=== PATIENT | female | born 1960 | race Caucasian/White ===

== ENCOUNTER → 2019-12-08 12:57 | Outpatient (BNVA) | payer MEDICARE, OTHER, SELFPAY | PROVIDERS: Family Provider Nurse Practitioner Family; PCP Nurse Practitioner Family; Visit Provider Nurse Practitioner Psychiatric/Mental Health | DX: F31.5 Bipolar disorder, current episode depressed, severe, with psychotic features (principal); F43.12 Post-traumatic stress disorder, chronic; F50.2 Bulimia nervosa | CPT/HCPCS: 99213 ==

== ENCOUNTER → 2020-06-01 09:40 | Outpatient (BNVA) | payer MEDICARE, OTHER, SELFPAY | PROVIDERS: Family Provider Nurse Practitioner Family; PCP Nurse Practitioner Family; Visit Provider Nurse Practitioner Psychiatric/Mental Health | DX: F31.5 Bipolar disorder, current episode depressed, severe, with psychotic features (principal); F43.12 Post-traumatic stress disorder, chronic; F50.2 Bulimia nervosa | CPT/HCPCS: 99213 ==

== ENCOUNTER → 2020-07-13 07:55 | Outpatient (BNVA) | payer MEDICARE, OTHER, SELFPAY | PROVIDERS: Family Provider Nurse Practitioner Family; PCP Nurse Practitioner Family; Visit Provider Nurse Practitioner Psychiatric/Mental Health | DX: F31.5 Bipolar disorder, current episode depressed, severe, with psychotic features (principal); F43.12 Post-traumatic stress disorder, chronic; F50.2 Bulimia nervosa | CPT/HCPCS: 99213 ==

== ENCOUNTER → 2020-07-20 11:37 | Outpatient (BNVA) | payer MEDICARE, OTHER, SELFPAY | PROVIDERS: Family Provider Nurse Practitioner Family; PCP Nurse Practitioner Family; Visit Provider Nurse Practitioner Family | DX: M19.90 Unspecified osteoarthritis, unspecified site (principal); E55.9 Vitamin D deficiency, unspecified; E03.9 Hypothyroidism, unspecified; Z79.899 Other long term (current) drug therapy; Z13.6 Encounter for screening for cardiovascular disorders | CPT/HCPCS: 80053; 80061; 81003; 82306; 83036; 83735; 84100; 84443; 85025; 85651; 86140 ==

== ENCOUNTER → 2020-09-07 09:30 | Outpatient (BNVA) | payer MEDICARE, OTHER, SELFPAY | PROVIDERS: Family Provider Nurse Practitioner Family; PCP Nurse Practitioner Family; Visit Provider Nurse Practitioner Psychiatric/Mental Health | DX: F31.5 Bipolar disorder, current episode depressed, severe, with psychotic features (principal); F43.12 Post-traumatic stress disorder, chronic; F50.2 Bulimia nervosa | CPT/HCPCS: 99213 ==

== ENCOUNTER → 2020-10-17 15:08 | Outpatient (BNVA) | payer MEDICARE, OTHER, SELFPAY | PROVIDERS: Family Provider Nurse Practitioner Family; PCP Nurse Practitioner Family; Visit Provider Nurse Practitioner Family | DX: M19.90 Unspecified osteoarthritis, unspecified site (principal); S70.00XA Contusion of unspecified hip, initial encounter; Z96.642 Presence of left artificial hip joint | CPT/HCPCS: 73502 ==

== ENCOUNTER 2020-10-23 09:34 | Outpatient (CLI) | payer MEDICARE, OTHER, SELFPAY ==
--- NOTE | 2020-10-23 09:44 | MM_ITS ---
WS: [id number] BILATERAL SCREENING DIGITAL MAMMOGRAM WITH CAD HISTORY: SCREENING COMPARISON: 07/05/2019 and 05/03/2018 Bilateral CC and MLO views submitted. Computer aided detection analyzed. Breast composition: The breasts are heterogeneously dense, which may obscure small masses. No suspici ous masses, microcalcifications or architectural distortion. Benign calcifications and stable asymmet son within each breast. MM/[place] [id number] IMPRESSION: BI-RADS: 2-Benign FOLLOW UP: 1 Year Follow-up
[2020-10-23 14:26] LABS: Basophils % 0.8 %; Eosinophils # 0.1 10^3/uL (0.0-0.8); Eosinophils % 2.5 %; Hematocrit 40.1 % (37.0-47.0); Hemoglobin 12.8 g/dL (11.5-15.3); Lymphocytes # 1.8 10^3/uL (0.8-4.8); Lymphocytes % 37.8 %; Mean Corpuscular HGB Conc 31.9 g/dL (30.0-36.0); Mean Corpuscular Hemoglobin 30.5 pg (28.0-34.0); Mean Corpuscular Volume 95.5 fL (81-99); Mean Platelet Volume 9.5 fL (7.4-10.4); Monocytes # 0.5 10^3/uL (0.2-0.9); Monocytes % 9.4 %; Neutrophils # 2.36 10^3/uL (1.8-7.7); Neutrophils % 49.3 %; Nucleated Red Blood Cells % 0 %; Platelet Count 279 10^3/cmm (130-400); Red Cell Distribution Width 12.9 % (12.1-15.1); White Blood Count 4.8 10^3/uL (4.0-10.0)
[2020-10-23 15:07] LABS: 25 Hydroxy Vitamin D 40 ng/mL (30-100); Alanine Aminotransferase 23 U/L (0-33); Albumin Level 4.1 g/dL (3.5-5.2); Alkaline Phosphatase 105 IU/L (35-105); Aspartate Amino Transferase 23 U/L (0-32); C Reactive Protein 0.8 mg/L (0.0-4.9); Globulin 2.4 g/dL (1.3-4.6); Glomerular Filtration Rate 101.3 mL/min (90-130); Total Bilirubin 0.2 mg/dL (0.15-1.2); Total Protein 6.5 g/dL (6.6-8.7)
[2020-10-23 15:38] LABS: Erythrocyte Sedimentation Rate 8 mm/hr (0-15)
[2020-10-25 11:24] LABS: Anti-Nuclear Antibody Pattern Nuclear, Homogeneous; Anti-Nuclear Antibody Screen POSITIVE (NEGATIVE)
[2020-10-25 14:58] LABS: Quantiferon Mitogen >10.00 IU/mL; Quantiferon Nil 0.02 IU/mL; Quantiferon Plus TB1 0.33 IU/mL; Quantiferon Plus TB2 0.22 IU/mL; Quantiferon TB Gold NEGATIVE (NEGATIVE)
== END 2020-10-23 09:35 | disposition home or self-care (01) ==
LOC: RADSHAW 09:39
PROVIDERS: Internal Medicine Rheumatology; Family Provider Nurse Practitioner Family; PCP Nurse Practitioner Family; Visit Provider Nurse Practitioner Family
DX: M15.4 Erosive (osteo)arthritis (principal); Z12.31 Encounter for screening mammogram for malignant neoplasm of breast; Z11.1 Encounter for screening for respiratory tuberculosis; Z79.899 Other long term (current) drug therapy; Z96.643 Presence of artificial hip joint, bilateral; M19.041 Primary osteoarthritis, right hand; M19.042 Primary osteoarthritis, left hand; M19.90 Unspecified osteoarthritis, unspecified site
CPT/HCPCS: 36415; 71046; 73130; 73630; 77067; 80076; 82306; 82565; 85025; 85651; 86038; 86140; 86480; 99204

== ENCOUNTER 2020-10-23 13:51 | Outpatient (CLI) | payer MEDICARE, OTHER, SELFPAY ==
--- NOTE | 2020-10-23 13:57 | XR_ITS ---
WS: [id number] Exam: XR chest 2V* [id number] Date/Time of Exam: 10/23/2020 2:21 PM Reason For Exam: M19.041 - Primary osteoarthritis, right hand Comparison 08/21/2010. The lungs are clear and fully inflated. Normal cardiomediastinal structures. Plate and screw fixation of the right clavicle. XR/XR chest 2V* [id number] IMPRESSION: 1. No acute cardiopulmonary finding.
--- NOTE | 2020-10-23 13:57 | XR_ITS ---
WS: [id number] Exam: XR foot RT min 3V* [id number] Date/Time of Exam: 10/23/2020 2:21 PM Reason For Exam: M19.041 - Primary osteoarthritis, right hand No fracture or dislocation. Degenerative changes noted in the IP joints as well as the first MP joint . Degenerative changes in the midfoot joints. There are 2 screws noted in the medial malleolus appare ntly secondary to prior fracture. Normal soft tissues. XR/XR foot RT min 3V* [id number] IMPRESSION: 1. Degenerative changes of the foot as detailed above. 2. No fracture or dislocation.
--- NOTE | 2020-10-23 13:57 | XR_ITS ---
WS: [id number] Exam: XR hand RT min 3V* [id number] Date/Time of Exam: 10/23/2020 2:21 PM Reason For Exam: M19.041 - Primary osteoarthritis, right hand Comparison 01/12/2018. Severe osteoarthritic change noted involving the IP joints. This is most severe involving the PIP tigist nts which demonstrate osseous erosion and deformities. Moderate degenerative change also seen in the MP joints. Degenerative changes have been significantly progressive since the last exam. No acute fra cture or dislocation. XR/XR hand RT min 3V* [id number] IMPRESSION: 1. Severe degenerative changes noted in the IP joints most severe in the PIP bubba ints. Significant progression since prior study. 2. No fracture or dislocation. 3. Additional degenerative changes in the MP joints and also the joints of the wrist.
--- NOTE | 2020-10-23 13:57 | XR_ITS ---
WS: [id number] Exam: XR foot LT min 3V* [id number] Date/Time of Exam: 10/23/2020 2:21 PM Reason For Exam: M19.041 - Primary osteoarthritis, right hand No acute fracture or dislocation. Moderately advanced degenerative changes in the IP joints as well a s the first MP joint. Severe degenerative change in the DIP joint of the second toe. Degenerative kim nges in the midfoot joints. Normal soft tissues. Old healed fracture deformities of the third and fou rth metatarsals. XR/XR foot LT min 3V* [id number] IMPRESSION: 1. Moderately severe degenerative changes in the IP joints. This is most severe in the DIP joint of the second toe. Additional degenerative changes of the ankita t as detailed above. 2. No acute bony injury. Additional findings as noted above.
--- NOTE | 2020-10-23 13:57 | XR_ITS ---
WS: [id number] Exam: XR hand LT min 3V* [id number] Date/Time of Exam: 10/23/2020 2:21 PM Reason For Exam: M19.041 - Primary osteoarthritis, left hand Comparison 01/12/2018. Severe degenerative changes in the IP joints with [id number]. Partial subluxation of the second PIP joint with deformity. Moderate degenerative thinning of the MP joints. Degenerative changes of been progressive since prior study. No fracture or dislocation. No soft tissue foreign bodies. XR/XR hand LT min 3V* [id number] IMPRESSION: 1. Severe progressive degenerative changes in the IP joints. Moderate degenerat perla narrowing of the MP joints. 2. No fracture.
== END 2020-10-23 13:52 | disposition home or self-care (01) ==
LOC: LAB 13:55
PROVIDERS: PCP Nurse Practitioner Family; Visit Provider Nurse Practitioner Family
DX: M19.041 Primary osteoarthritis, right hand (principal); M19.042 Primary osteoarthritis, left hand; M19.90 Unspecified osteoarthritis, unspecified site
CPT/HCPCS: 71046; 73130; 73630

== ENCOUNTER 2020-11-29 06:00 | Outpatient (RCR) | payer MEDICARE, OTHER, SELFPAY | END 2020-12-26 23:59 | disposition home or self-care (01) | LOC: WPT 06:00 | PROVIDERS: PCP Nurse Practitioner Family; Referring Provider Nurse Practitioner Family; Visit Provider Nurse Practitioner Family | DX: M25.552 Pain in left hip (principal); G89.29 Other chronic pain | CPT/HCPCS: 97110; 97161 ==

== ENCOUNTER 2020-12-27 06:00 | Outpatient (RCR) | payer MEDICARE, OTHER, SELFPAY | END 2021-01-25 23:59 | disposition home or self-care (01) | LOC: WPT 06:00 | PROVIDERS: PCP Nurse Practitioner Family; Referring Provider Nurse Practitioner Family; Visit Provider Nurse Practitioner Family | DX: F31.5 Bipolar disorder, current episode depressed, severe, with psychotic features (principal); F43.12 Post-traumatic stress disorder, chronic; F50.2 Bulimia nervosa; Z79.899 Other long term (current) drug therapy | CPT/HCPCS: 97110; 99214 ==

== ENCOUNTER → 2021-01-14 14:45 | Outpatient (BNVA) | payer MEDICARE, OTHER, SELFPAY | PROVIDERS: PCP Nurse Practitioner Family; Visit Provider Internal Medicine Rheumatology | DX: L40.50 Arthropathic psoriasis, unspecified (principal); M15.4 Erosive (osteo)arthritis; Z79.899 Other long term (current) drug therapy; R76.8 Other specified abnormal immunological findings in serum; Z96.643 Presence of artificial hip joint, bilateral | CPT/HCPCS: 99214 ==

== ENCOUNTER → 2021-02-05 10:44 | Outpatient (BNVA) | payer MEDICARE, OTHER, SELFPAY | PROVIDERS: PCP Nurse Practitioner Family; Visit Provider Nurse Practitioner Psychiatric/Mental Health | DX: Z79.899 Other long term (current) drug therapy (principal) | CPT/HCPCS: 80053; 80061; 80164; 83036 ==

== ENCOUNTER → 2021-02-14 11:32 | Outpatient (BNVA) | payer MEDICARE, OTHER, SELFPAY | PROVIDERS: PCP Nurse Practitioner Family; Visit Provider Internal Medicine Rheumatology | DX: M19.90 Unspecified osteoarthritis, unspecified site (principal); R76.8 Other specified abnormal immunological findings in serum; Z79.899 Other long term (current) drug therapy; L40.50 Arthropathic psoriasis, unspecified | CPT/HCPCS: 36415; 80076; 81003; 82565; 82570; 84156; 85025; 86140; 86160; 86162; 86235; 86255; 86376 ==

== ENCOUNTER → 2021-03-21 07:22 | Outpatient (BNVA) | payer MEDICARE, OTHER, SELFPAY | PROVIDERS: PCP Nurse Practitioner Family; Visit Provider Nurse Practitioner Psychiatric/Mental Health | DX: F31.5 Bipolar disorder, current episode depressed, severe, with psychotic features (principal); F43.12 Post-traumatic stress disorder, chronic; F50.2 Bulimia nervosa | CPT/HCPCS: 99214 ==

== ENCOUNTER → 2021-05-08 07:36 | Outpatient (BNVA) | payer MEDICARE, OTHER, SELFPAY | PROVIDERS: PCP Nurse Practitioner Family; Visit Provider Nurse Practitioner Psychiatric/Mental Health | DX: F31.5 Bipolar disorder, current episode depressed, severe, with psychotic features (principal); F43.12 Post-traumatic stress disorder, chronic; F50.2 Bulimia nervosa | CPT/HCPCS: 99214 ==

== ENCOUNTER → 2021-05-27 13:18 | Outpatient (BNVA) | payer MEDICARE, OTHER, SELFPAY | PROVIDERS: PCP Nurse Practitioner Family; Visit Provider Internal Medicine Rheumatology | DX: M15.4 Erosive (osteo)arthritis (principal); M24.60 Ankylosis, unspecified joint; Z79.899 Other long term (current) drug therapy; Z71.89 Other specified counseling; Z96.643 Presence of artificial hip joint, bilateral | CPT/HCPCS: 99214 ==

== ENCOUNTER → 2021-06-19 07:20 | Outpatient (BNVA) | payer MEDICARE, OTHER, SELFPAY | PROVIDERS: PCP Nurse Practitioner Family; Visit Provider Nurse Practitioner Psychiatric/Mental Health | DX: F31.5 Bipolar disorder, current episode depressed, severe, with psychotic features (principal); F43.12 Post-traumatic stress disorder, chronic; F50.2 Bulimia nervosa | CPT/HCPCS: 99214 ==

== ENCOUNTER → 2021-07-30 09:03 | Outpatient (BNVA) | payer MEDICARE, OTHER, SELFPAY | PROVIDERS: PCP Nurse Practitioner Family; Visit Provider Internal Medicine Rheumatology | DX: L40.50 Arthropathic psoriasis, unspecified (principal); M15.4 Erosive (osteo)arthritis; Z79.899 Other long term (current) drug therapy | CPT/HCPCS: 80076; 82565; 85025; 86140 ==

== ENCOUNTER → 2021-08-14 07:45 | Outpatient (BNVA) | payer MEDICARE, OTHER, SELFPAY | PROVIDERS: PCP Nurse Practitioner Family; Visit Provider Nurse Practitioner Psychiatric/Mental Health | DX: F31.5 Bipolar disorder, current episode depressed, severe, with psychotic features (principal); F43.12 Post-traumatic stress disorder, chronic; F50.2 Bulimia nervosa | CPT/HCPCS: 99214 ==

== ENCOUNTER → 2021-08-20 13:53 | Outpatient (BNVA) | payer MEDICARE, OTHER, SELFPAY | PROVIDERS: PCP Nurse Practitioner Family; Visit Provider Internal Medicine Rheumatology | DX: M15.4 Erosive (osteo)arthritis (principal); M79.642 Pain in left hand; W19.XXXA Unspecified fall, initial encounter; Z79.899 Other long term (current) drug therapy; R76.8 Other specified abnormal immunological findings in serum; Z96.643 Presence of artificial hip joint, bilateral; Z71.89 Other specified counseling | CPT/HCPCS: 99214 ==

== ENCOUNTER 2021-08-20 14:46 | Outpatient (CLI) | payer MEDICARE, OTHER, SELFPAY ==
--- NOTE | 2021-08-20 14:59 | XR_ITS ---
WS: [id number] HAND LEFT TECHNIQUE: 3 views of the left hand CLINICAL INFORMATION: M79.643 - Pain in unspecified hand COMPARISON: October 23, 2020 FINDINGS: Osteopenia. Normal metacarpals. IP joint narrowing with advanced degenerative narrowing at the second PIP joint with subluxation. Additional advanced degenerative narrowing involving the fifth DIP joint s with subluxation and periarticular spurring. Mild narrowing of the radiocarpal joint. Degenerative narrowing at the first MCP joint. IMPRESSION: 1. Osteopenia. No acute fractures. 2. No significant changes compared to previous.
== END 2021-08-20 14:47 | disposition home or self-care (01) ==
PROVIDERS: PCP Nurse Practitioner Family; Visit Provider Internal Medicine Rheumatology
DX: M79.89 Other specified soft tissue disorders (principal); M85.842 Other specified disorders of bone density and structure, left hand
CPT/HCPCS: 73130

== ENCOUNTER → 2021-10-09 07:40 | Outpatient (BNVA) | payer MEDICARE, OTHER, SELFPAY | PROVIDERS: PCP Nurse Practitioner Family; Visit Provider Nurse Practitioner Psychiatric/Mental Health | DX: F31.5 Bipolar disorder, current episode depressed, severe, with psychotic features (principal); F43.12 Post-traumatic stress disorder, chronic; F50.2 Bulimia nervosa | CPT/HCPCS: 99214 ==

== ENCOUNTER → 2021-12-04 08:16 | Outpatient (BNVA) | payer MEDICARE, SELFPAY | PROVIDERS: PCP Nurse Practitioner Family; Visit Provider Nurse Practitioner Psychiatric/Mental Health | DX: F31.5 Bipolar disorder, current episode depressed, severe, with psychotic features (principal); F43.12 Post-traumatic stress disorder, chronic; F50.2 Bulimia nervosa; L40.50 Arthropathic psoriasis, unspecified; Z79.899 Other long term (current) drug therapy; M15.4 Erosive (osteo)arthritis; R76.8 Other specified abnormal immunological findings in serum; Z96.643 Presence of artificial hip joint, bilateral; Z71.89 Other specified counseling | CPT/HCPCS: 99214 ==

== ENCOUNTER 2022-01-08 12:35 | Inpatient (IN) | payer MEDICARE, OTHER, SELFPAY ==
[2022-01-08 12:45] VITALS: BP 157/93; PULSE 86; RESP 18; TEMP 36.2; O2SAT 97; BMI 28.3
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
[2022-01-08 14:21] LABS: Basophils % 0.7 %; Hematocrit 39.8 % (37.0-47.0); Hemoglobin 13.3 g/dL (11.5-15.3); Lymphocytes # 1.2 10^3/uL (0.8-4.8); Lymphocytes % 28.7 %; Mean Corpuscular HGB Conc 33.4 g/dL (30.0-36.0); Mean Corpuscular Hemoglobin 32.1 pg (28.0-34.0); Mean Corpuscular Volume 96.1 fl (81-99); Mean Platelet Volume 9.2 fL (7.4-10.4); Monocytes # 0.4 10^3/uL (0.2-0.9); Monocytes % 8.4 %; Neutrophils # 2.59 10^3/uL (1.8-7.7); Nucleated Red Blood Cells % 0 %; Platelet Count 331 10^3/cmm (130-400); Red Blood Count 4.14 10^6/uL (4.1-5.3); Red Cell Distribution Width 13.4 % (12.1-15.1); White Blood Count 4.2 10^3/uL (4.0-10.0)
[2022-01-08 14:54] LABS: Alanine Aminotransferase 28 U/L (0-33); Albumin Level 4.3 g/dL (3.5-5.2); Alkaline Phosphatase 66 IU/L (35-105); Anion Gap 15.3 (5-19); Aspartate Amino Transferase 39 U/L (0-32); Blood Urea Nitrogen 16 mg/dL (8-23); Calcium 10.2 mg/dL (8.5-10.5); Carbon Dioxide 26 mmol/L (22-29); Chloride 104 mmol/L (98-107); Globulin 2.6 g/dL (1.3-4.6); Glucose 113 mg/dL (65-115); Lipase 29 U/L (13-60); Osmolality Calculated 296 mOsm/kg (285-295); Potassium 3.3 mmol/L (3.5-5.1); Sodium 142 mmol/L (136-145); Total Bilirubin 0.5 mg/dL (0.15-1.2); Total Protein 6.9 g/dL (6.6-8.7)
[2022-01-08 14:57] LABS: Acetaminophen < 5.0 ug/mL (10-30); Salicylate < 0.3 mg/dL (3-10)
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
[2022-01-08 15:54] VITALS: BP 142/83; PULSE 82; RESP 14; O2SAT 94
[2022-01-08 16:06] VITALS: BP 142/73; PULSE 97; RESP 16; TEMP 36.4; O2SAT 99
[2022-01-08] MEDS: OLANZapine 5 mg ODT PO (16:29)
--- NOTE | 2022-01-08 17:51 | XR_ITS ---
WS: [id number] Portable AP upright chest, 01/08/2022 Clinical Data: history of positive tb skin test. Comparison: PA and lateral chest, 10/23/2020. Findings: No nodules, masses or effusions are seen. The heart is normal. The pulmonary vascularity is not increased. No pneumonia or pneumothorax is seen. There is internal fixation of a right mid clavi cular fracture. XR/XR chest 1V portable [id number] Impression: Negative chest.
[2022-01-08] MEDS: divalproex ER 500 mg Tablet (24H) 1500 MG PO (21:05)
[2022-01-08] MEDS: quetiapine 25 mg Tablet 50 MG PO (21:06)
[2022-01-08 21:10] VITALS: RESP 18
[2022-01-09 06:00] VITALS: RESP 18
[2022-01-09] MEDS: TRAMadol 50 mg Tablet PO ×2 (10:32→18:58)
[2022-01-09] MEDS: folic acid 1 mg Tablet PO (10:32)
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
[2022-01-09 14:00] VITALS: RESP 18
--- NOTE | 2022-01-09 14:02 | PC.NURSE ---
patient refused vitals.
--- NOTE | 2022-01-09 16:14 | PC.SOCIAL ---
Patient attended group, but did not meaningfully participate.
[2022-01-09 20:39] VITALS: RESP 20
[2022-01-09] MEDS: hyDROXYzine 25 mg Capsule 50 MG PO (20:45)
[2022-01-09] MEDS: divalproex ER 500 mg Tablet (24H) 1500 MG PO (20:46)
[2022-01-09] MEDS: quetiapine 100 mg Tablet PO (20:46)
--- NOTE | 2022-01-09 22:14 | PC.NURSE ---
patient tearful, patient asking this RN to go to her house and get her book. patient told this is not possible I cannot leave the hospital, patient offered other books we have on the unit, patient does not want them. patient thought process disorganized, pointing at staff and asking why they are crying when they are not, patient apologizing and stating I didn't mean to embarass you . patient argumentative and will not leave nurses station, she declines medication.
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
[2022-01-10 06:00] VITALS: PULSE 86; RESP 17; O2SAT 100
[2022-01-10] MEDS: folic acid 1 mg Tablet PO (08:54)
[2022-01-10] MEDS: venlafaxine ER (24HR) 150 mg Capsule PO (08:54)
--- NOTE | 2022-01-10 10:31 | W.PM.NPUPNS ---
Subjective NPU Subjective: She was standing in the hallway after the nurses had tried to talk her into taking her morning medication. One of the morning medications was tramadol. She would not talk with me. She looked at me with a skeptical look when I asked her how she was doing. I asked her why she did not want to take her tramadol. I interpreted her look as her thinking that I knew what was in her mind but she denied that when asked. She did not sleep well last night despite taking Seroquel 100 mg. She was up at the nurses station frequently. Her and father came to visit yesterday. She refused to see her . Mental Status Exam MSE Comments: This is a 61-year-old mildly overweight female who appears approximately her stated age and is in no acute distress. She is dressed in hospital scrubs. She was resistant to answering questions. Her eye contact was good. psychomotor activity mildly decreased. Speech is nondiscernible. She would not talk with me today. Alert, but would not talk with me. Attention and concentration seems a little diminished. Memory is intact Mood is nondiscernible. Affect is mildly dysphoric. Thought process nondiscernible because she would not talk Thought content: Denies auditory and visual hallucinations. She seems a paranoid. She seems to be delusional about her wanting to harm her. No current suicidal ideation, and no homicidal ideation. Fund of knowledge is probably average. Insight and judgment appear to be poor. Impulse control is probably poor. Cognition: Patient Appearance: Appropriate Level of Consciousness: Awake and Alert Ability to Follow Directions: Fair Patient Orientation (long list): Person Comprehension Ability: Mild Impairment Hallucination Type: None Delusion Description: Taoist Thought Process: Confused, Incoherent and Loose Associations Affect: Affect Description: Anxious and Labile Behavior: Patient Behavior: Appropriate Speech Pattern: Appropriate and Delayed Vitals/I&O/Wt Last Vital Signs Temp 97.5 F L 01/08/22 16:06 Pulse 86 01/10/22 06:00 Resp 17 01/10/22 06:00 BP 142/73 01/08/22 16:06 Pulse Ox 100 01/10/22 06:00 Weight last 48 hrs Weight 74.843 kg Data NPU : 01/08/22 14:17 01/08/22 14:17 A&P Assessment and plan (1) Bipolar I disorder, moderate, current or most recent episode depressed, with psychotic features: Status: Chronic (2) Chronic post-traumatic stress disorder: Status: Chronic (3) Bulimia nervosa in remission: Status: Chronic (4) Depression: Status: Acute Plan This is a 61-year-old female with a history of bipolar disorder and PTSD who presents with psychosis and insomnia Plan: 1. Continue current medication. We will increase Seroquel to 200 mg 2. Continue every 15 minute checks for safety. 3. Encourage individual, group and milieu therapies. 4. Encourage sober living treatment after discharge at the highest level of care to which she is willing to commit. 5. We will monitor for safety for herself in the community prior to discharge. Involuntary Hold Information 96 Hour Hold: 96 Hour Involuntary Admission: No Attestations U Medical Necessity Statement*: Inpatient hospitalization is medically necessary and the clinically appropriate intervention at this time. We will initiate medications and make changes as indicated. Coding Level of Care Code Acute Apprentice Stylist for Brad Ramos Diagnoses Bipolar I disorder, moderate, current or most recent episode depressed, with psychotic features F31.5 Chronic post-traumatic stress disorder F43.12 Bulimia nervosa in remission F50.2 Depression F32.A
[2022-01-10 14:00] VITALS: BP 119/65; PULSE 75; RESP 20; TEMP 36.9; O2SAT 100
--- NOTE | 2022-01-10 16:58 | PC.SOCIAL ---
Patient attended group.
[2022-01-10 20:23] VITALS: BP 135/95; PULSE 96; RESP 16; O2SAT 99
--- NOTE | 2022-01-11 01:14 | PC.NURSE ---
She refused her HS meds tonight.
--- NOTE | 2022-01-11 02:02 | PC.NURSE ---
patient confused, agitated. patient continues to put face right on nurses station glass, listening in on information about other patients. this continues to feed into patient's paranoia, patient resistive to care, intrusive. patient not able to be verbally redirected, she refuses to leave the nurses station.
[2022-01-11] MEDS: LORazepam 2 mg/mL INJ 1 mL IM ×2 (02:27→20:53)
[2022-01-11 06:00] VITALS: RESP 16
--- NOTE | 2022-01-11 13:26 | W.PM.NPUPNS ---
Subjective NPU Subjective: She refused her nighttime medications last night. She asked for a shot at midnight and received Ativan 2 mg IM. She did sleep for about 6 hours after that. She is somewhat unsteady on her feet today. She continues to be very paranoid and delusional. Mental Status Exam MSE Comments: This is a 61-year-old mildly overweight female who appears approximately her stated age and is in no acute distress. She is dressed in hospital scrubs. She was resistant to answering questions. Her eye contact was good. psychomotor activity mildly decreased. Speech is nondiscernible. She would not talk with me today. Alert, but would not talk with me. Attention and concentration seems a little diminished. Memory is intact Mood is nondiscernible. Affect is mildly dysphoric. Thought process nondiscernible because she would not talk Thought content: Denies auditory and visual hallucinations. She seems a paranoid. She seems to be delusional about her wanting to harm her. No current suicidal ideation, and no homicidal ideation. Fund of knowledge is probably average. Insight and judgment appear to be poor. Impulse control is probably poor. Cognition: Patient Appearance: Disheveled/Poor Hygiene Level of Consciousness: Awake and Alert Ability to Follow Directions: Fair Patient Orientation (long list): Person Comprehension Ability: Mild Impairment Hallucination Type: None Delusion Description: Not Present Thought Process: Confused, Disorganized, Indecisive and Loose Associations Affect: Affect Description: Depressed, Guarded and Tearful Behavior: Patient Behavior: Irritable, Negative, Resistive to Care and Uncooperative Speech Pattern: Clear and Pressured Vitals/I&O/Wt Last Vital Signs Temp 98.5 F 01/10/22 14:00 Pulse 96 01/10/22 20:23 Resp 16 01/11/22 06:00 BP 135/95 01/10/22 20:23 Pulse Ox 99 01/10/22 20:23 Data NPU : 01/08/22 14:17 01/08/22 14:17 A&P Assessment and plan (1) Bipolar I disorder, moderate, current or most recent episode depressed, with psychotic features: Status: Chronic (2) Chronic post-traumatic stress disorder: Status: Chronic (3) Bulimia nervosa in remission: Status: Chronic (4) Depression: Status: Acute Plan This is a 61-year-old female with a history of bipolar disorder and PTSD who presents with psychosis and insomnia Plan: 1. Continue current medication. We will increase Seroquel to 200 mg. We will give Ativan IM if she refuses p.o. medications at bedtime. 2. Continue every 15 minute checks for safety. 3. Encourage individual, group and milieu therapies. 4. Encourage sober living treatment after discharge at the highest level of care to which she is willing to commit. 5. We will monitor for safety for herself in the community prior to discharge. Involuntary Hold Information 96 Hour Hold: 96 Hour Involuntary Admission: No Attestations NPU Medical Necessity Statement*: Inpatient hospitalization is medically necessary and the clinically appropriate intervention at this time. We will initiate medications and make changes as indicated. Coding Level of Care Code Acute Advanced Manager for Brad Ramos Diagnoses Bipolar I disorder, moderate, current or most recent episode depressed, with psychotic features F31.5 Chronic post-traumatic stress disorder F43.12 Bulimia nervosa in remission F50.2 Depression F32.A
[2022-01-11 14:00] VITALS: BP 155/55; PULSE 92; RESP 20; TEMP 36.6; O2SAT 98
--- NOTE | 2022-01-11 14:54 | PC.NURSE ---
FALL PT IS AWAKE THIS MORNING. THOUGHT PROCESS IS CONFUSED. GAIT IS LESS STABLE THIS MORNING THAN PRIOR DAY. STAFF ENSURED THAT PT HAD WALKER FOR AMBULATION AND STRESSED IMPORTANCE OF USE. PT COMPLIANT WITH WALKER USE IN MORNING. AFTER BREAKFAST PT HAD EPISODE OF URINARY INCONTINENCE. REFUSED STAFF TO ASSIST WITH CHANGING CLOTHING, STATING THAT SHE CHANGES HER OWN CLOTHING AND ASKED STAFF TO LEAVE PRIOR TO GOING TO BATHROOM AND CHANGING. PT CHANGED PANTS WITHOUT FURTHER ISSUE. AT APPROXIMATELY 1005 NOISE WAS HEARD IN PTS ROOM. STAFF TO PTS ROOM WHERE PT WAS FOUND TO SITTING ON BUTTOCKS ON SHOWER FLOOR. PT STATES THAT SHE DECIDED TO CHANGE PANTS AGAIN BUT FELL IN BATHROOM WHILE CHANGING. DENIES STRIKING HEAD. STATES HIT BACK OF LEFT SHOULDER ON SHOWER WALL AND BACK OF LEFT THIGH ON SHOWER LIP. LIGHT REDNESS NOTED TO BACK OF SHOULDER. PT DENIED ANY PAIN AFTER STAFF ASSISTED IN STANDING AND MOVING TO BED. STAFF ASSISTED PT IN DRESSING IN FRESH CLOTHES. VS STABLE AT BP 119/66, O2 99%, PULSE 99. NOTIFIED, DIRECTOR NOTIFIED. PT PLACED CLOSE TO NURSES STATION FOR CLOSER MONITORING. ENSURED NON SLIP SOCKS IN PLACE AGAIN AFTER CHANGING CLOTHING. STAFF AWARE OF FALL RISK AND FALL PRECAUTIONS. AFTER MONITORING PT REMAINS RESISTANT TO ASSISTANCE FROM STAFF. PT THEN REFUSING TO CONSTANTLY UTILIZE WALKER. NOTIFIED AGAIN. NEW ORDERS PLACED TO BEGIN ONE ON ONE SITTER. PT REMAINS ONE TO ONE AT THIS TIME WITH SITTER. NO FURTHER C/O PAIN. NO FURTHER FALLS.
[2022-01-11] MEDS: acetaminophen 325 mg Tablet 650 MG PO (16:12)
[2022-01-11 20:17] VITALS: BP 141/64; PULSE 94; RESP 18; TEMP 37.2; O2SAT 99
--- NOTE | 2022-01-11 22:27 | PC.NURSE ---
She was given ativan 2 mg IM at 2052 per doctor request, if she refused her HS meds. She became very combative and hit my left hand with a brush.
[2022-01-12 06:00] VITALS: RESP 18
--- NOTE | 2022-01-12 08:07 | W.PM.NPUPNS ---
Subjective NPU Subjective: She said that she is feeling better today. She said that she slept well last night. She thought she was given Haldol and felt that that was helpful. It was actually Ativan that she received IM. She said something about using quetiapine to help her sleep at home. She said that while we have here and trying to give her is different and she does not want to take it. She was told that if she took that she would not have to take the shot. She continues to be paranoid. She said obviously I cannot trust anyone Mental Status Exam MSE Comments: This is a 61-year-old mildly overweight female who appears approximately her stated age and is in no acute distress. She is dressed in hospital scrubs. She was pleasant and cooperative and answered questions. Her eye contact was good. psychomotor activity mildly decreased. Speech is clear and coherent and of regular rate and rhythm Alert and oriented Attention and concentration appear to be normal today. Memory is intact Mood is good. Affect is mildly dysphoric. Thought process logical and goal directed Thought content: Denies auditory and visual hallucinations. She continues to be paranoid. She seems to be delusional about the staff here wanting to harm her. She refuses medications because she is convinced it is different from what she takes at home. No current suicidal ideation, and no homicidal ideation. Fund of knowledge is probably average. Insight and judgment appear to be poor. Impulse control is probably poor. Cognition: Patient Appearance: Disheveled/Poor Hygiene Level of Consciousness: Awake and Alert Ability to Follow Directions: Fair Patient Orientation (long list): Person, Place, Name, Age and Birthday Comprehension Ability: Mild Impairment Hallucination Type: None Delusion Description: Not Present Thought Process: Confused, Disorganized, Indecisive and Loose Associations Affect: Affect Description: Appropriate and Calm Behavior: Patient Behavior: Appropriate Speech Pattern: Clear and Includes Profanity Vitals/I&O/Wt Last Vital Signs Temp 99 F 01/11/22 20:17 Pulse 94 01/11/22 20:17 Resp 18 01/12/22 06:00 BP 141/64 01/11/22 20:17 Pulse Ox 99 01/11/22 20:17 Data NPU : 01/08/22 14:17 01/08/22 14:17 A&P Assessment and plan (1) Bipolar I disorder, moderate, current or most recent episode depressed, with psychotic features: Status: Chronic (2) Chronic post-traumatic stress disorder: Status: Chronic (3) Bulimia nervosa in remission: Status: Chronic (4) Depression: Status: Acute Plan This is a 61-year-old female with a history of bipolar disorder and PTSD who presents with psychosis and insomnia Plan: 1. Continue current medication. We will increase Seroquel to 200 mg. We will give Ativan IM if she refuses p.o. medications at bedtime. 2. Continue every 15 minute checks for safety. 3. Encourage individual, group and milieu therapies. 4. Encourage sober living treatment after discharge at the highest level of care to which she is willing to commit. 5. We will monitor for safety for herself in the community prior to discharge. Involuntary Hold Information 96 Hour Hold: 96 Hour Involuntary Admission: No Attestations U Medical Necessity Statement*: Inpatient hospitalization is medically necessary and the clinically appropriate intervention at this time. We will initiate medications and make changes as indicated. Coding Level of Care Code Acute Marketing Database Analyst for Brad Ramos Diagnoses Bipolar I disorder, moderate, current or most recent episode depressed, with psychotic features F31.5 Chronic post-traumatic stress disorder F43.12 Bulimia nervosa in remission F50.2 Depression F32.A
[2022-01-12 14:00] VITALS: BP 125/66; PULSE 101; RESP 18; TEMP 37.1; O2SAT 100
[2022-01-12] MEDS: LORazepam 2 mg/mL INJ 1 mL IM (21:28)
[2022-01-12 22:00] VITALS: BP 123/65; PULSE 86; RESP 17; TEMP 37.1; O2SAT 100
--- NOTE | 2022-01-12 23:33 | PC.NURSE ---
Pt refused to take evening medication. Stated that the meds we are trying to give her are not what she takes at home. Even when shown on the computer itself where both generic and trade names are listed, pt states that's not the medications that i take . staff tried to explain that the pharmacy she uses for her home meds is not the same pharmacy that the hospital uses. and that not every pharmacy has the same medication company supply them, so the meds may be a different color and or a different shape. pt continues to refuse medications. one of the other pts has been encouraging this pt NOT to take the medications if she has not seen the Doctor yet. pt stated she has not seen the Doctor, and refuses to take our medicines because they are not the ones i take at home. IM Ativan given in right deltoid with staff and security standby.
[2022-01-13 06:00] VITALS: RESP 16
[2022-01-13] MEDS: levothyroxine 125 mcg Tablet PO (07:35)
[2022-01-13] MEDS: nicotine 2 mg Gum BUCCAL (10:50)
--- NOTE | 2022-01-13 12:12 | W.PM.NPUPNS ---
Subjective NPU Subjective: She said that she slept well last night. She did not remember taking the Ativan injection to sleep. She said she would take it as needed if she knew exactly what she was taking. She does not trust us to give her what we say we are getting her. She says she was a little afraid of the Ativan because she overdosed on Ativan 1 time in the ambulance had to be called. She said that she had an argument with her . She was told that we would prefer that she take the Seroquel or the Ativan by mouth and not need the injection. She will think about it and consider taking the Seroquel or the Ativan by mouth tonight. Mental Status Exam MSE Comments: This is a 61-year-old mildly overweight female who appears approximately her stated age and is in no acute distress. She is dressed in hospital scrubs. She was pleasant and cooperative and answered questions. Her eye contact was good. psychomotor activity mildly decreased. Speech is clear and coherent and of regular rate and rhythm Alert and oriented Attention and concentration appear to be normal today. Memory is intact Mood is good. Affect is mildly dysphoric. Thought process logical and goal directed Thought content: Denies auditory and visual hallucinations. She continues to be paranoid. She seems to be delusional about the staff here wanting to harm her. She refuses medications because she is convinced it is different from what she takes at home. No current suicidal ideation, and no homicidal ideation. Fund of knowledge is probably average. Insight and judgment appear to be poor. Impulse control is probably poor. Cognition: Patient Appearance: Appears Older than Age Level of Consciousness: Awake and Alert Ability to Follow Directions: Fair Patient Orientation (long list): Person, Place, Name, Age and Birthday Comprehension Ability: Mild Impairment Hallucination Type: Auditory Delusion Description: Not Present Thought Process: Confused, Disorganized, Indecisive and Loose Associations Affect: Affect Description: Appropriate and Calm Behavior: Patient Behavior: Appropriate and Cooperative Speech Pattern: Appropriate and Clear Vitals/I&O/Wt Last Vital Signs Temp 98.8 F 01/12/22 22:00 Pulse 86 01/12/22 22:00 Resp 16 01/13/22 06:00 BP 123/65 01/12/22 22:00 Pulse Ox 100 01/12/22 22:00 Data NPU : 01/08/22 14:17 01/08/22 14:17 A&P Assessment and plan (1) Bipolar I disorder, moderate, current or most recent episode depressed, with psychotic features: Status: Chronic (2) Chronic post-traumatic stress disorder: Status: Chronic (3) Bulimia nervosa in remission: Status: Chronic (4) Depression: Status: Acute Plan This is a 61-year-old female with a history of bipolar disorder and PTSD who presents with psychosis and insomnia Plan: 1. Continue current medication. We will increase Seroquel to 200 mg. We will also offer Ativan 2 mg p.o. but not both. We will give Ativan IM if she refuses p.o. medications at bedtime. 2. Continue every 15 minute checks for safety. 3. Encourage individual, group and milieu therapies. 4. Encourage sober living treatment after discharge at the highest level of care to which she is willing to commit. 5. We will monitor for safety for herself in the community prior to discharge. Involuntary Hold Information 96 Hour Hold: 96 Hour Involuntary Admission: No Attestations U Medical Necessity Statement*: Inpatient hospitalization is medically necessary and the clinically appropriate intervention at this time. We will initiate medications and make changes as indicated. Coding Level of Care Code Acute Mortgage Loan Assistant for Brad Ramos Diagnoses Bipolar I disorder, moderate, current or most recent episode depressed, with psychotic features F31.5 Chronic post-traumatic stress disorder F43.12 Bulimia nervosa in remission F50.2 Depression F32.A
[2022-01-13 14:00] VITALS: BP 146/72; PULSE 97; RESP 17; TEMP 36.8; O2SAT 99
[2022-01-13 20:16] VITALS: BP 115/64; PULSE 66; RESP 17; TEMP 36.9; O2SAT 98
[2022-01-13] MEDS: divalproex ER 500 mg Tablet (24H) 1500 MG PO (21:25)
[2022-01-13] MEDS: quetiapine 100 mg Tablet 200 MG PO (21:26)
[2022-01-14 06:00] VITALS: BP 126/82; PULSE 96; RESP 18; TEMP 36.9; O2SAT 100
[2022-01-14] MEDS: levothyroxine 125 mcg Tablet PO (06:57)
[2022-01-14] MEDS: folic acid 1 mg Tablet PO (08:10)
[2022-01-14] MEDS: TRAMadol 50 mg Tablet PO (08:10)
[2022-01-14] MEDS: venlafaxine ER (24HR) 150 mg Capsule PO (08:11)
[2022-01-14 14:00] VITALS: BP 126/82; PULSE 96; RESP 18; TEMP 36.9; O2SAT 100
[2022-01-14 14:51] VITALS: BP 104/57; PULSE 79; RESP 15; TEMP 36.8; O2SAT 100
--- NOTE | 2022-01-14 15:24 | W.PM.NPUPNS ---
Subjective NPU Subjective: She is doing better. She is less suspicious. However she is still paranoid. She has been compliant with oral medications last night and this morning. Unfortunately, she took the Seroquel 200 mg for the first time last night and did not get much sleep. We will try that and the Ativan p.o. tonight if she will take it. She was with her and father when I went to talk with her. I asked her if she was improved and he said it looks like it so far. He did not seem terribly convinced that she was better. Mental Status Exam MSE Comments: This is a 61-year-old mildly overweight female who appears approximately her stated age and is in no acute distress. She is dressed in hospital scrubs. She is more steady in her gait. She was standing while her and father were sitting and talking with them. She seemed pleasant with them. She had previously only wanted to visit with her father. Her eye contact was good. psychomotor activity mildly decreased. Speech is clear and coherent and of regular rate and rhythm Alert and oriented Attention and concentration appear to be normal today. Memory is intact Mood is good. Affect is mildly dysphoric. Thought process logical and goal directed Thought content: Denies auditory and visual hallucinations. She continues to be paranoid. She seems to be delusional about the staff here wanting to harm her. She refuses medications because she is convinced it is different from what she takes at home. No current suicidal ideation, and no homicidal ideation. Fund of knowledge is probably average. Insight and judgment appear to be poor. Impulse control is probably poor. Cognition: Patient Appearance: Appears Older than Age Level of Consciousness: Awake and Alert Ability to Follow Directions: Fair Patient Orientation (long list): Person, Place, Name, Age and Birthday Comprehension Ability: Mild Impairment Hallucination Type: None Delusion Description: Not Present Thought Process: Confused, Disorganized, Indecisive and Loose Associations Affect: Affect Description: Appropriate and Calm Behavior: Patient Behavior: Appropriate and Cooperative Speech Pattern: Appropriate and Clear Vitals/I&O/Wt Last Vital Signs Temp 98.2 F 01/14/22 14:51 Pulse 79 01/14/22 14:51 Resp 15 01/14/22 14:51 BP 104/57 01/14/22 14:51 Pulse Ox 100 01/14/22 14:51 Data NPU : 01/08/22 14:17 01/08/22 14:17 A&P Assessment and plan (1) Bipolar I disorder, moderate, current or most recent episode depressed, with psychotic features: Status: Chronic (2) Chronic post-traumatic stress disorder: Status: Chronic (3) Bulimia nervosa in remission: Status: Chronic (4) Depression: Status: Acute Plan This is a 61-year-old female with a history of bipolar disorder and PTSD who presents with psychosis and insomnia Plan: 1. Continue current medication. We will try Seroquel to 200 mg along with Ativan p.o. if she will take it tonight. We will give Ativan IM if she refuses p.o. medications at bedtime. 2. Continue every 15 minute checks for safety. 3. Encourage individual, group and milieu therapies. 4. Encourage sober living treatment after discharge at the highest level of care to which she is willing to commit. 5. We will monitor for safety for herself in the community prior to discharge. Involuntary Hold Information 96 Hour Hold: 96 Hour Involuntary Admission: No Attestations NPU Medical Necessity Statement*: Inpatient hospitalization is medically necessary and the clinically appropriate intervention at this time. We will initiate medications and make changes as indicated. Coding Level of Care Code Acute Packaging Inspector for Brad Ramos Diagnoses Bipolar I disorder, moderate, current or most recent episode depressed, with psychotic features F31.5 Chronic post-traumatic stress disorder F43.12 Bulimia nervosa in remission F50.2 Depression F32.A
--- NOTE | 2022-01-14 15:46 | PC.NURSE ---
Patient ambulating in hallway and dayroom without assistance. Gait is steady. Discussed with physician with orders to stop the 1:1 order.
[2022-01-14] MEDS: LORazepam 2 mg Tablet PO (21:36)
[2022-01-14] MEDS: quetiapine 100 mg Tablet 200 MG PO (21:36)
[2022-01-14] MEDS: divalproex ER 500 mg Tablet (24H) 1500 MG PO (21:42)
[2022-01-14 22:00] VITALS: BP 115/65; PULSE 87; RESP 17; TEMP 37; O2SAT 97
[2022-01-15 05:34] VITALS: BP 111/67; PULSE 57; RESP 17; TEMP 36.7; O2SAT 96
--- NOTE | 2022-01-15 07:10 | PC.NURSE ---
PT HAS HAD A MUCH BETTER NIGHT THIS NIGHT. PT FIRST REFUSED HER HS MEDS, BUT WHEN PT WAS ASKED TO COME BACK TO HER ROOM IN ORDER FOR STAFF TO GIVE AN INJECTION. ONCE PT ENTERED HER ROOM, PT STATED SHE WOULD TAKE HER OTHER MEDS. PT WAS GIVEN HER ORAL MEDICATIONS AND IM MEDICATION WAS WASTED.
[2022-01-15] MEDS: levothyroxine 125 mcg Tablet PO (09:25)
[2022-01-15] MEDS: venlafaxine ER (24HR) 150 mg Capsule PO (09:25)
[2022-01-15] MEDS: folic acid 1 mg Tablet PO (09:25)
--- NOTE | 2022-01-15 12:03 | W.PM.NPUPNS ---
Subjective NPU Subjective: She is doing better. She slept last night with the Seroquel 200 mg and Ativan 2 mg p.o. She is steady on her feet and walking well. We have been able to stop the sitter because she is more stable on her feet. She is taking her p.o. medications. Although she had some distrust last night. She took them partially in order to avoid an injection. Overall she is not seen as paranoid. She seemed to enjoy visiting with her which she did not want to see previously. She said that people have to gain her trust and you cannot just trust anyone you me on the street or in the hospital. Mental Status Exam MSE Comments: This is a 61-year-old mildly overweight female who appears approximately her stated age and is in no acute distress. She is dressed in hospital scrubs. She is steady on her feet now. She was pleasant and cooperative with the evaluation. Her eye contact was fairly good. psychomotor activity mildly decreased. Speech is clear and coherent and of regular rate and rhythm Alert and oriented Attention and concentration appear to be normal today. Memory is intact Mood is good. Affect is mildly dysphoric. Thought process logical and goal directed Thought content: Denies auditory and visual hallucinations. She continues to be paranoid. She seems to be delusional about the staff here wanting to harm her but these seem to be decreasing she has been taking p.o. medications. No current suicidal ideation, and no homicidal ideation. Fund of knowledge is probably average. Insight and judgment appear to be poor. Impulse control is probably poor. Cognition: Patient Appearance: Disheveled/Poor Hygiene Level of Consciousness: Awake and Alert Ability to Follow Directions: Fair Patient Orientation (long list): Person, Place, Name, Age and Birthday Comprehension Ability: Mild Impairment Hallucination Type: None Delusion Description: Not Present Thought Process: Disorganized and Indecisive Affect: Affect Description: Flat Behavior: Patient Behavior: Withdrawn Speech Pattern: No Speech Vitals/I&O/Wt Last Vital Signs Temp 98.0 F 01/15/22 05:34 Pulse 57 L 01/15/22 05:34 Resp 17 01/15/22 05:34 BP 111/67 01/15/22 05:34 Pulse Ox 96 01/15/22 05:34 Data NPU : 01/08/22 14:17 01/08/22 14:17 A&P Assessment and plan (1) Bipolar I disorder, moderate, current or most recent episode depressed, with psychotic features: Status: Chronic (2) Chronic post-traumatic stress disorder: Status: Chronic (3) Bulimia nervosa in remission: Status: Chronic (4) Depression: Status: Acute Plan This is a 61-year-old female with a history of bipolar disorder and PTSD who presents with psychosis and insomnia Plan: 1. Continue current medication. We will continue giving Seroquel to 200 mg along with Ativan 2 mg p.o.. We will give Ativan IM if she refuses p.o. medications at bedtime. 2. Continue every 15 minute checks for safety. 3. Encourage individual, group and milieu therapies. 4. Encourage sober living treatment after discharge at the highest level of care to which she is willing to commit. 5. We will monitor for safety for herself in the community prior to discharge. Involuntary Hold Information 96 Hour Hold: 96 Hour Involuntary Admission: No Attestations NPU Medical Necessity Statement*: Inpatient hospitalization is medically necessary and the clinically appropriate intervention at this time. We will initiate medications and make changes as indicated. Coding Level of Care Code Acute Piano Case And Bench Assembler for Brad Ramos Diagnoses Bipolar I disorder, moderate, current or most recent episode depressed, with psychotic features F31.5 Chronic post-traumatic stress disorder F43.12 Bulimia nervosa in remission F50.2 Depression F32.A
[2022-01-15 14:00] VITALS: BP 116/56; PULSE 93; RESP 16; TEMP 36.9; O2SAT 100
--- NOTE | 2022-01-15 14:55 | PC.SOCIAL ---
Patient did not attend group.
[2022-01-15 20:42] VITALS: BP 137/84; PULSE 80; RESP 18; TEMP 37.3; O2SAT 94
[2022-01-15] MEDS: quetiapine 100 mg Tablet 200 MG PO (21:25)
[2022-01-15] MEDS: LORazepam 2 mg Tablet PO (21:26)
[2022-01-15] MEDS: divalproex ER 500 mg Tablet (24H) 1500 MG PO (21:27)
[2022-01-16 06:00] VITALS: PULSE 78; RESP 16; TEMP 36.6; O2SAT 100
--- NOTE | 2022-01-16 09:24 | PC.NURSE ---
refused scheduled Folic acid & Effexor
--- NOTE | 2022-01-16 10:38 | PC.NURSE ---
Denies HI/SI and AVH. Denies pain. Patient is delusional during AM assessment and paranoid. States, I don't trust you or any of you. Refused AM medications despite multiple staff attempts. This RN attempted to help her but refuses any kind of assistance from me or staff. Refuses to use walker even though she is encouraged to do so.
[2022-01-16 14:00] VITALS: BP 107/68; PULSE 109; RESP 20; TEMP 36.8; O2SAT 97
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
[2022-01-16 21:22] VITALS: BP 100/70; PULSE 103; RESP 16; TEMP 36.9; O2SAT 99
[2022-01-16] MEDS: quetiapine 100 mg Tablet 200 MG PO (21:24)
[2022-01-16] MEDS: divalproex ER 500 mg Tablet (24H) 1500 MG PO (21:24)
[2022-01-16] MEDS: LORazepam 2 mg Tablet PO (21:24)
[2022-01-16] MEDS: trazodone 50 mg Tablet PO (21:25)
[2022-01-17 06:00] VITALS: RESP 16
[2022-01-17] MEDS: levothyroxine 125 mcg Tablet PO (06:43)
[2022-01-17] MEDS: venlafaxine ER (24HR) 150 mg Capsule PO (09:22)
[2022-01-17] MEDS: folic acid 1 mg Tablet PO (09:22)
--- NOTE | 2022-01-17 12:19 | P.NPUPN_ITS ---
Subjective NPU Subjective: Patient presents today continuing to be somewhat foggy but is able to discuss the fact that her came to visit her and she was still feeling unsure about what her discharge plan would be. We discussed the importance of us decreasing her Ativan further and this field underwriter's plan to decrease it to 1 mg starting tomorrow night and she understood agreed proceed as documented in his note. There were no strange comments or behaviors and we discussed the fact that this field underwriter initially was not sure that her father was still alive but that was confirmed and he is living with her. Mental Status Exam MSE Comments: This is an overweight white female in hospital scrubs with adequate grooming and eye contact. No abnormal movements except for mild psychomotor retardation. Cooperative with exam in no acute distress. Speech was decreased rate and volume with diminishing pauses occurring less frequently mood described as okay, affect subdued. Thought process organized. Thought contact: patient denies suicidal or homicidal ideation, there were no delusions reported or noted, patient denied auditory or visual hallucinations. Attention and concentration appeared intact and memory appeared reliable but none were formally tested. Patient is alert and oriented times three. Insight and judgment appear limited and impulse control appears limited. Vitals/I&O/Wt Last Vital Signs Temp 98.4 F 01/16/22 21: Pulse 103 H 01/16/22 21:22 Resp 16 01/17/22 06:00 BP 100/70 01/16/22 21:22 Pulse Ox 99 01/16/22 21:22 Data NPU : 01/08/22 14:17 01/08/22 14:17 A&P Assessment and plan (1) Bipolar I disorder, moderate, current or most recent episode depressed, with psychotic features: Status: Chronic (2) Chronic post-traumatic stress disorder: Status: Chronic Plan This is a 61-year-old female with a history of bipolar disorder and PTSD who presents with psychosis and insomnia Plan: 1.? Continue current medication.? We will continue giving Seroquel to 200 mg along with Ativan 2 mg p.o. due to the edvin, however we will look to decrease Ativan 1 mg p.o. nightly tomorrow.? 2.? Continue every 15 minute checks for safety. 3.? Encourage individual, group and milieu therapies. 4.? Encourage sober living treatment after discharge at the highest level of care to which she is willing to commit. 5.? We will work with treatment team to explore the support network for discharge and what the home environment is like. Involuntary Hold Information 96 Hour Hold: 96 Hour Involuntary Admission: No Attestations NPU Medical Necessity Statement*: Inpatient hospitalization is medically necessary and the clinically appropriate intervention at this time.? We will initiate medications and make changes as indicated.? Likely length of stay 1-3 days. Coding Level of Care Code Acute Shop And Alteration Tailor for [facility] Diagnoses Bipolar I disorder, moderate, current or most recent episode depressed, with psychotic features F31.5 Chronic post-traumatic stress disorder F43.12
[2022-01-17 14:00] VITALS: BP 102/63; PULSE 86; RESP 17; TEMP 36.6; O2SAT 96
[2022-01-17] MEDS: divalproex ER 500 mg Tablet (24H) 1500 MG PO (20:41)
[2022-01-17] MEDS: LORazepam 2 mg Tablet PO (20:41)
[2022-01-17] MEDS: quetiapine 100 mg Tablet 200 MG PO (20:41)
[2022-01-17] MEDS: trazodone 50 mg Tablet PO (20:41)
[2022-01-17 20:54] VITALS: BP 110/75; PULSE 86; RESP 16; O2SAT 100
[2022-01-18 05:46] VITALS: BP 111/77; PULSE 81; RESP 16; O2SAT 100
[2022-01-18] MEDS: levothyroxine 125 mcg Tablet PO (06:38)
[2022-01-18] MEDS: folic acid 1 mg Tablet PO (08:44)
[2022-01-18] MEDS: venlafaxine ER (24HR) 150 mg Capsule PO (08:44)
[2022-01-18] MEDS: nicotine 2 mg Gum BUCCAL (11:05)
[2022-01-18 14:00] VITALS: BP 106/68; PULSE 94; RESP 18; TEMP 36.8; O2SAT 97
--- NOTE | 2022-01-18 15:05 | P.NPUPN_ITS ---
Subjective NPU Subjective: Patient presents today continuing to have slow improvement in her cognitive slowing. However there was a report of her having strange behavior in the kitchen basically slapping a sandwich against the wall. She had no explanation for that behavior. We discussed the risk benefits and alternatives of changing her Ativan to 1 mg at night as needed and hopefully increasing her spontaneous cognitions and decreasing risk for falls and other sequela of benzodiazepines in geriatric populations and she appeared to understand and agreed to proceed as is documented in this note Mental Status Exam MSE Comments: This is an overweight white female in hospital scrubs with adequate grooming and eye contact. No abnormal movements except for psychomotor retardation and mild unsteadiness of gait as she utilizes her rolling walker. Cooperative with exam in no acute distress. Speech was decreased rate and volume with diminishing pauses/pauses occurring less frequently. Mood described as okay, affect subdued. Thought process organized. Thought contact: patient denies suicidal or homicidal ideation, there were no delusions reported or noted, patient denied auditory or visual hallucinations. Attention and concentration appeared intact and memory appeared reliable but none were formally tested. Shavonne ent is alert and oriented times three. Insight and judgment appear limited and impulse control appears limited versus impaired Vitals/I&O/Wt Last Vital Signs Temp 97.8 F 01/17/22 14:00 Pulse 81 01/18/22 05:46 Resp 16 01/18/22 05:46 BP 111/77 01/18/22 05:46 Pulse Ox 100 01/18/22 05:46 Data NPU : 01/08/22 14:17 01/08/22 14:17 A&P Assessment and plan (1) Bipolar I disorder, moderate, current or most recent episode depressed, with psychotic features: Status: Chronic (2) Chronic post-traumatic stress disorder: Status: Chronic Plan This is a 61-year-old female with a history of bipolar disorder and PTSD who presents with psychosis and insomnia Plan: 1.? Continue current medication.? We will continue giving Seroquel to 200 mg, however we decrease the Ativan to 1 mg p.o. nightly as needed.? 2.? Continue every 15 minute checks for safety. 3.? Encourage individual, group and milieu therapies. 4.? Encourage sober living treatment after discharge at the highest level of care to which she is willing to commit. 5.? We will work with treatment team to explore the support network for discharge and what the home environment is like. Involuntary Hold Information 96 Hour Hold: 96 Hour Involuntary Admission: No Attestations NPU Medical Necessity Statement*: Inpatient hospitalization is medically necessary and the clinically appropriate intervention at this time.? We will initiate medications and make changes as indicated.? Likely length of stay 2-3 days. Coding Level of Care Code Acute Jury Consultant for [facility] Fwd Diagnoses Bipolar I disorder, moderate, current or most recent episode depressed, with psychotic features F31.5 Chronic post-traumatic stress disorder F43.12
[2022-01-18] MEDS: quetiapine 100 mg Tablet 200 MG PO (20:46)
[2022-01-18] MEDS: trazodone 50 mg Tablet PO (20:46)
[2022-01-18] MEDS: divalproex ER 500 mg Tablet (24H) 1500 MG PO (20:46)
[2022-01-18 20:48] VITALS: BP 81/61; PULSE 86; RESP 17; TEMP 37.2; O2SAT 97
--- NOTE | 2022-01-19 01:35 | PHA.FALL ---
A Pharmacy Consult Was Conducted For Zakia Rajan Tico Due To: Ibarra Fall Scale Risk Level: High Fall Risk On 01/18/22 20:00 And A Medication Fall Risk Score Greater Than 10. The Recommendations Are As Follows: Diazepam 1mg BRENDA: 1,2,3,4,5,6,8,10 Divalproex ER BRENDA: 1,3,4,5,6,7,8,10 Lorazepam BRENDA: 1,3,4,5,6,8,10 Seroquel BRENDA: 2,3,4,5,7,8 Venlafaxine ER BRENDA: 1,4,7 Medications which cause/contribute to: 1 = sedation/fatigue/lethargy 2 = decreased alertness 3 = postural/orthostatic hypotension 4 = dizziness 5 = decreased neuromuscular function/ataxia 6 = decreased memory/cognitive impairment 7 = blurred vision 8 = confusion 9 = arrhythmias 10 = syncope 11 = anemia
[2022-01-19 05:35] VITALS: BMI 28.3
[2022-01-19 05:59] VITALS: BP 101/66; PULSE 66; RESP 16; TEMP 36.3; O2SAT 99
[2022-01-19] MEDS: levothyroxine 125 mcg Tablet PO (06:13)
[2022-01-19] MEDS: folic acid 1 mg Tablet PO (08:53)
[2022-01-19] MEDS: venlafaxine ER (24HR) 150 mg Capsule PO (08:53)
--- NOTE | 2022-01-19 09:31 | W.PM.NPUPNS ---
Subjective NPU Subjective: Patient presents today starting to be more spontaneously conversant and able to articulate concepts pertinent to her life and challenges. Was able to articulate that her situation at home should be workable given that the house is large enough for her, her father and . She was less unstable on her feet with the subtraction of the Ativan. And was seen moving quite well even without the rolling walker. She reports is eating and sleeping better. We discussed the likelihood of discharge within the next 48 hours. Medications: Medication Review Details: This is an overweight white female in hospital scrubs with adequate grooming and eye contact. No abnormal movements except for psychomotor retardation.? Cooperative with exam in no acute distress. Speech was decreased rate and volume with diminishing pauses/pauses occurring less frequently.? Mood described as better I think, affect less subdued. Thought process organized. Thought contact: patient denies suicidal or homicidal ideation, there were no delusions reported or noted, patient denied auditory or visual hallucinations. Attention and concentration appeared intact and memory appeared reliable but none were formally tested. Patient is alert and oriented times three. Insight and judgment appear limited and impulse control appears limited , but improving. Vitals/I&O/Wt Last Vital Signs Temp 97.4 F L 01/19/22 05:59 Pulse 66 01/19/22 05:59 Resp 16 01/19/22 05:59 BP 101/66 01/19/22 05:59 Pulse Ox 99 01/19/22 05:59 Weight last 48 hrs Weight 74.843 kg Data NPU : 01/08/22 14:17 01/08/22 14:17 A&P Assessment and plan (1) Bipolar I disorder, moderate, current or most recent episode depressed, with psychotic features: Status: Chronic (2) Chronic post-traumatic stress disorder: Status: Chronic (3) Depression: Status: Acute Plan This is a 61-year-old female with a history of bipolar disorder and PTSD who presents with psychosis and insomnia Plan: 1.? Continue current medication.? We will continue giving Seroquel to 200 mg, however we decrease the Ativan to 1 mg p.o. nightly as needed.? 2.? Continue every 15 minute checks for safety. 3.? Encourage individual, group and milieu therapies. 4.? Encourage sober living treatment after discharge at the highest level of care to which she is willing to commit. 5.? We will work with treatment team to explore the support network for discharge and what the home environment is like. Involuntary Hold Information 96 Hour Hold: 96 Hour Involuntary Admission: No Attestations NPU Medical Necessity Statement*: Inpatient hospitalization is medically necessary and the clinically appropriate intervention at this time.? We will initiate medications and make changes as indicated.? Likely length of stay 1-2 days. Coding Level of Care Code Acute Food Production Machine Operator for [facility] Fwd Diagnoses Bipolar I disorder, moderate, current or most recent episode depressed, with psychotic features F31.5 Chronic post-traumatic stress disorder F43.12 Depression F32.A
[2022-01-19 14:00] VITALS: BP 106/64; PULSE 70; RESP 15; TEMP 36.4; O2SAT 99
[2022-01-19] MEDS: quetiapine 100 mg Tablet 200 MG PO (21:05)
[2022-01-19] MEDS: divalproex ER 500 mg Tablet (24H) 1500 MG PO (21:05)
[2022-01-19 21:10] VITALS: BP 130/79; PULSE 88; RESP 17; TEMP 37.6; O2SAT 99
[2022-01-20 06:00] VITALS: BP 101/55; PULSE 80; RESP 18; TEMP 36.3; O2SAT 100
[2022-01-20] MEDS: levothyroxine 125 mcg Tablet PO (06:19)
[2022-01-20] MEDS: venlafaxine ER (24HR) 150 mg Capsule PO (09:38)
[2022-01-20] MEDS: folic acid 1 mg Tablet PO (09:38)
[2022-01-20 14:00] VITALS: BP 107/64; PULSE 77; RESP 17; TEMP 37.5; O2SAT 99
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
[2022-01-20 16:14] VITALS: BP 107/64; PULSE 77; RESP 17; TEMP 37.5; O2SAT 99
== END 2022-01-20 16:25 | disposition home or self-care (01) | DRG 885 ==
LOC: ER 15:09 → NP 15:22
PROVIDERS: Admitting Provider Psychiatry & Neurology Psychiatry; Emergency Provider Emergency Medicine; Visit Provider Psychiatry & Neurology Psychiatry
DX: F31.5 Bipolar disorder, current episode depressed, severe, with psychotic features (principal); F43.12 Post-traumatic stress disorder, chronic; G47.00 Insomnia, unspecified
CPT/HCPCS: 71045; 80053; 80307; 83690; 85025; 96372; 97150; 97165; 99285; J2060

== ENCOUNTER 2022-01-22 11:42 | Emergency (ER) | payer MEDICARE, OTHER, SELFPAY ==
[2022-01-22 11:44] VITALS: BP 135/63; PULSE 84; RESP 14; TEMP 37; O2SAT 99; BMI 23.1
--- NOTE | 2022-01-22 11:48 | ECG_ITS ---
[facility] Test Date: 2022-01-22 Pat Name: Zakia Doshi Department: Room: Gender: Female Case Folder: : 1960 Requested By: Franklin Avalos Order Number: [id number] Reading MD: Alfa Rodríguez M.D. Measurements Intervals [place] Rate: 78 P: 60 GA: 158 QRS: 32 QRSD: 104 T: 49 QT: 378 QTc: 433 Interpretive Statements SINUS RHYTHM No previous ECG available for comparison Electronically Signed On 01-22-2022 16:53:41 CDT by Alfa Rodríguez M.D. [email or web address]
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
[2022-01-22 12:22] LABS: Basophils % 0.6 %; Hematocrit 40.2 % (37.0-47.0); Hemoglobin 13.1 g/dL (11.5-15.3); Lymphocytes # 1.3 10^3/uL (0.8-4.8); Lymphocytes % 24.2 %; Mean Corpuscular HGB Conc 32.6 g/dL (30.0-36.0); Mean Corpuscular Hemoglobin 31.1 pg (28.0-34.0); Mean Corpuscular Volume 95.5 fl (81-99); Mean Platelet Volume 10.8 fL (7.4-10.4); Monocytes # 0.4 10^3/uL (0.2-0.9); Monocytes % 8.3 %; Neutrophils # 3.51 10^3/uL (1.8-7.7); Neutrophils % 66.5 %; Nucleated Red Blood Cells % 0 %; Platelet Count 237 10^3/cmm (130-400); Red Blood Count 4.21 10^6/uL (4.1-5.3); Red Cell Distribution Width 12.5 % (12.1-15.1); White Blood Count 5.3 10^3/uL (4.0-10.0)
[2022-01-22 12:53] LABS: SARS Covid-2 Antigen Negative (Negative)
[2022-01-22 13:05] LABS: Alanine Aminotransferase 24 U/L (0-33); Albumin Level 4.4 g/dL (3.5-5.2); Alkaline Phosphatase 83 IU/L (35-105); Aspartate Amino Transferase 26 U/L (0-32); Blood Urea Nitrogen 13 mg/dL (8-23); Calcium 9.3 mg/dL (8.5-10.5); Carbon Dioxide 29 mmol/L (22-29); Chloride 102 mmol/L (98-107); Free T4 Free Thyroxine 1.36 ng/dL (0.82-1.77); Glucose 111 mg/dL (65-115); Lipase 22 U/L (13-60); Osmolality Calculated 293 mOsm/kg (285-295); Sodium 141 mmol/L (136-145); Thyroid Stimulating Hormone 3.11 uIU/mL (0.27-4.20); Total Bilirubin 0.3 mg/dL (0.15-1.2); Total Protein 6.4 g/dL (6.6-8.7)
[2022-01-22 13:32] LABS: Acetaminophen < 5.0 ug/mL (10-30); Alcohol Level < 10 mg/dL (0-10); Salicylate < 0.3 mg/dL (3-10)
[2022-01-22 14:04] LABS: Amphetamines Screen Urine Negative (Negative); Barbiturates Screen Urine Negative (Negative); Benzodiazepines Screen Urine Positive (Negative); Cocaine Screen Urine Negative (Negative); Opiate Screen Urine Negative (Negative); PCP Screen Urine Negative (Negative); THC Screen Urine Negative (Negative)
[2022-01-22 14:32] LABS: Add Urine Microscopic? NO; Charge for UA Resulting for Rev
[2022-01-22 14:48] LABS: Specific Gravity, Urine 1.015 (1.005-1.030); Urine Appearance Clear (CLEAR); Urine Color Yellow (Yellow); pH Urine 7 (5-7)
[2022-01-22 14:49] LABS: Bilirubin Urine Neg (Negative); Blood Urine Neg (Negative); Glucose Urine UA Norm (Normal); Ketones Urine 1+ (Negative); Leukocyte Esterase Urine Negative (Negative); Nitrate Urine Negative (Negative); Protein Urine Neg (Negative); Urobilinogen Urine 1 mg/dL (Negative)
[2022-01-22] MEDS: acetaminophen 500 mg Tablet PO (16:40)
[2022-01-22 16:41] VITALS: BP 147/67; PULSE 85; RESP 18; O2SAT 99
[2022-01-22 21:21] VITALS: BP 127/72; PULSE 86; RESP 16; O2SAT 99
[2022-01-22 21:46] VITALS: BP 127/72; PULSE 86; RESP 16; O2SAT 99
== END 2022-01-22 21:50 ==
PROVIDERS: Emergency Provider Emergency Medicine
DX: F22 Delusional disorders (principal); Z79.891 Long term (current) use of opiate analgesic
CPT/HCPCS: 80053; 80306; 80307; 81003; 83690; 84439; 84443; 85025; 87426; 93005; 99215; 99285

== ENCOUNTER → 2022-02-05 14:47 | Outpatient (BNVA) | payer MEDICARE, OTHER, SELFPAY | PROVIDERS: Visit Provider Nurse Practitioner Psychiatric/Mental Health | DX: F31.5 Bipolar disorder, current episode depressed, severe, with psychotic features (principal); F43.12 Post-traumatic stress disorder, chronic; F50.2 Bulimia nervosa | CPT/HCPCS: 99214 ==

== ENCOUNTER → 2022-05-27 15:37 | Outpatient (BNVA) | payer MEDICARE, OTHER, SELFPAY | PROVIDERS: Visit Provider Nurse Practitioner Psychiatric/Mental Health | DX: F31.5 Bipolar disorder, current episode depressed, severe, with psychotic features (principal); Z79.899 Other long term (current) drug therapy; F43.12 Post-traumatic stress disorder, chronic; F50.2 Bulimia nervosa | CPT/HCPCS: 80053; 80061; 83036 ==

== ENCOUNTER → 2022-08-18 09:20 | Outpatient (BNVA) | payer MEDICARE, SELFPAY ==
[2022-05-30 13:40] VITALS: BP 136/74; BMI 27.5
== END ==
PROVIDERS: PCP Nurse Practitioner; Visit Provider Nurse Practitioner
DX: M19.90 Unspecified osteoarthritis, unspecified site (principal); Z79.899 Other long term (current) drug therapy
CPT/HCPCS: 80076; 82565; 85025; 86140

== ENCOUNTER → 2022-10-14 13:54 | Outpatient (BNVA) | payer MEDICARE, OTHER, SELFPAY ==
[2022-05-30 13:40] VITALS: BP 136/74; BMI 27.5
== END ==
PROVIDERS: PCP Nurse Practitioner; Visit Provider Nurse Practitioner Family
DX: S52.001A Unspecified fracture of upper end of right ulna, initial encounter for closed fracture (principal); W19.XXXA Unspecified fall, initial encounter
CPT/HCPCS: 73080; 99214

== ENCOUNTER 2022-10-21 06:00 | Outpatient (RCR) | payer MEDICARE, OTHER, SELFPAY ==
[2022-05-30 13:40] VITALS: BP 136/74; BMI 27.5
== END 2022-10-28 23:59 | disposition home or self-care (01) ==
LOC: WPT 06:00
PROVIDERS: PCP Nurse Practitioner; Visit Provider Nurse Practitioner Family
DX: Z47.89 Encounter for other orthopedic aftercare (principal)
CPT/HCPCS: 97110; 97163; 97530

== ENCOUNTER 2022-10-29 06:00 | Outpatient (RCR) | payer MEDICARE, OTHER, SELFPAY ==
[2022-05-30 13:40] VITALS: BP 136/74; BMI 27.5
== END 2022-11-25 23:59 | disposition home or self-care (01) ==
LOC: WPT 06:00
PROVIDERS: PCP Nurse Practitioner; Visit Provider Nurse Practitioner Family
DX: Z47.89 Encounter for other orthopedic aftercare (principal)
CPT/HCPCS: 97110; 97530

== ENCOUNTER → 2022-11-11 10:47 | Outpatient (BNVA) | payer MEDICARE, OTHER, SELFPAY ==
[2022-05-30 13:40] VITALS: BP 136/74; BMI 27.5
== END ==
PROVIDERS: PCP Nurse Practitioner; Visit Provider Surgery
DX: Z86.010 Personal history of colon polyps (principal); R11.0 Nausea
CPT/HCPCS: 99203

== ENCOUNTER → 2022-11-19 12:41 | Outpatient (BNVA) | payer MEDICARE, OTHER, SELFPAY ==
[2022-05-30 13:40] VITALS: BP 136/74; BMI 27.5
== END ==
PROVIDERS: PCP Nurse Practitioner; Visit Provider Nurse Practitioner Family
DX: W19.XXXA Unspecified fall, initial encounter (principal); S52.001A Unspecified fracture of upper end of right ulna, initial encounter for closed fracture
CPT/HCPCS: 73080; 99024; 99214

== ENCOUNTER 2022-11-26 06:00 | Outpatient (RCR) | payer MEDICARE, OTHER, SELFPAY ==
[2022-05-30 13:40] VITALS: BP 136/74; BMI 27.5
== END 2022-12-26 23:59 | disposition home or self-care (01) ==
LOC: WPT 06:00
PROVIDERS: PCP Nurse Practitioner; Visit Provider Nurse Practitioner Family
DX: Z47.89 Encounter for other orthopedic aftercare (principal)
CPT/HCPCS: 97110; 97140; 97530

== ENCOUNTER 2022-12-03 06:57 | Day surgery (SDC) | payer MEDICARE, OTHER, SELFPAY ==
[2022-05-30 13:40] VITALS: BP 136/74; BMI 27.5
[2022-12-02 08:23] VITALS: BMI 26.6
[2022-12-03 07:27] VITALS: BP 125/58; PULSE 69; RESP 16; TEMP 36.2; O2SAT 98
[2022-12-03] MEDS: sodium chloride 0.9% 1,000 ML 30 ML IV (07:31)
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
--- NOTE | 2022-12-03 08:31 | W.PM.OPSUD ---
Surgery/Procedure H&P Update DATE OF PROCEDURE: December 03, 2022 DATE H&P PERFORMED: 11/11/22 H&P UPDATE INFORMATION: I have reviewed H&P completed within last 30 days, I have examined patient prior to procedure and No changes to prior documentation PREOP DIAGNOSIS: screening PLANNED PROCEDURE: Operation Date: 12/03/22 08:15 Proposed Procedures p Colonoscopy 44726,Z12.11(Not Applicable) - Alexis Morejon, DO
[2022-12-03 08:53] VITALS: BP 105/48; PULSE 56; RESP 16; TEMP 36.3; O2SAT 95
[2022-12-03 09:03] VITALS: BP 115/56; PULSE 59; RESP 16; O2SAT 99
--- NOTE | 2022-12-03 14:28 | ANE.PACU2 ---
Inpatient post-anesthesia follow up: Airway intact: Yes Vital signs: Temperature 97.4 F Pulse Rate 59 Respiratory Rate 16 Blood Pressure 115/56 Pulse Oximetry 99 Oxygen Delivery Me thod Room Air Oxygen Flow Rate Fraction of Inspir ed Oxygen Hydration adequate: Yes Nausea and vomiting: No Pain level: 1 Mental status: Baseline
== END 2022-12-03 09:35 | disposition home or self-care (01) ==
PROVIDERS: PCP Nurse Practitioner; Visit Provider Surgery
PROC: 0DJD8ZZ Inspection of Lower Intestinal Tract, Via Natural or Artificial Opening Endoscopic (ICD-10-PCS; CPT 45378; principal; 2022-12-03 08:15)
DX: Z12.11 Encounter for screening for malignant neoplasm of colon (principal); D12.8 Benign neoplasm of rectum; E03.9 Hypothyroidism, unspecified; Z86.010 Personal history of colon polyps
CPT/HCPCS: 45385; 88305; J2704; J7030

== ENCOUNTER → 2022-12-17 13:02 | Outpatient (BNVA) | payer MEDICARE, OTHER, SELFPAY ==
[2022-05-30 13:40] VITALS: BP 136/74; BMI 27.5
== END ==
PROVIDERS: PCP Nurse Practitioner; Visit Provider Nurse Practitioner Family
DX: W19.XXXA Unspecified fall, initial encounter (principal); Z79.899 Other long term (current) drug therapy; S52.001A Unspecified fracture of upper end of right ulna, initial encounter for closed fracture; L40.50 Arthropathic psoriasis, unspecified; M15.4 Erosive (osteo)arthritis; M81.0 Age-related osteoporosis without current pathological fracture; R76.8 Other specified abnormal immunological findings in serum; Z71.89 Other specified counseling
CPT/HCPCS: 36415; 73070; 82040; 82306; 82310; 82565; 85025; 86140; 99213; 99214

== ENCOUNTER 2022-12-23 06:00 | Outpatient (RCR) | payer MEDICARE, OTHER, SELFPAY ==
[2022-05-30 13:40] VITALS: BP 136/74; BMI 27.5
== END 2022-12-26 23:59 | disposition home or self-care (01) ==
LOC: WPT 06:00
PROVIDERS: PCP Nurse Practitioner; Visit Provider Nurse Practitioner
DX: R26.9 Unspecified abnormalities of gait and mobility (principal)
CPT/HCPCS: 97110; 97112; 97163; 99212

== ENCOUNTER 2022-12-30 12:14 | Outpatient (CLI) | payer MEDICARE, OTHER, SELFPAY ==
[2022-05-30 13:40] VITALS: BP 136/74; BMI 27.5
--- NOTE | 2022-12-30 13:00 | XR_ITS ---
WS: [id number] DEXA (DUAL ENERGY X-RAY ABSORPTIOMETRY) Bone mineral density was performed using a [employer] machine. HISTORY: M81.0 - Age-related osteoporosis without current pathology... COMPARISON: 06/22/2018 Lumbar spine BMD (L1-L4): 1.084 g/cm2 T score: -0.8 Z score: 0.5 Left forearm BMD: 0.548 g/cm2. T score: -3.7 Z score: -2.4 Compared to the prior study from 03/22/2018. Lumbar spine bone mineral density has increased by 6.2%. LEFT forearm bone mineral density has decreased by 23.9%. XR/XR DEXA axial skeleton* 02312 IMPRESSION: OSTEOPOROSIS based upon the WHO classification for females. Significant decrease in bone mineral density within the LEFT forearm. Significant increase in bone mineral density within the lumbar spine. May be fa lsely elevated due to sclerosis.
== END 2022-12-30 12:15 | disposition home or self-care (01) ==
LOC: RAD 12:18
PROVIDERS: PCP Nurse Practitioner; Visit Provider Internal Medicine Rheumatology
DX: M81.0 Age-related osteoporosis without current pathological fracture (principal)
CPT/HCPCS: 77080

== ENCOUNTER 2023-01-13 13:14 | Outpatient (CLI) | payer MEDICARE, OTHER, SELFPAY ==
[2022-05-30 13:40] VITALS: BP 136/74; BMI 27.5
--- NOTE | 2023-01-13 13:20 | MM_ITS ---
WS: [id number] Bilateral screening 3D tomosynthesis digital mammogram, 01/13/2023 Clinical Data: SCREENING Comparison: 10/23/2020, 07/05/2019, 05/03/2018, 04/21/2017, 09/12/2015, 07/04/2015, 07/21/2012, 07/03/2011, 06/27/2010, 04/28/2009, 05/12/2008, 04/15/2007. Findings: The breast parenchymal pattern shows heterogeneous density. There are benign ductal calcifications th roughout both breasts. There are lymph nodes in both axilla. No spiculated masses or clustered calcif ications are seen. There are no secondary signs of carcinoma. MM/[id number] Impression: 1. Negative bilateral mammogram unchanged. 2. Recommend annual screening mammograms. BIRADS: 1-Negative FOLLOW UP: 1 Year Follow-up The CAD auto design checker was used.
== END 2023-01-13 13:15 | disposition home or self-care (01) ==
LOC: RAD 13:16
PROVIDERS: PCP Nurse Practitioner; Visit Provider Nurse Practitioner
DX: Z12.31 Encounter for screening mammogram for malignant neoplasm of breast (principal)
CPT/HCPCS: 77063; 77067

== ENCOUNTER → 2023-01-14 13:43 | Outpatient (BNVA) | payer MEDICARE, OTHER, SELFPAY ==
[2022-05-30 13:40] VITALS: BP 136/74; BMI 27.5
== END ==
PROVIDERS: PCP Nurse Practitioner; Visit Provider Nurse Practitioner Family
DX: W19.XXXA Unspecified fall, initial encounter (principal); S52.001A Unspecified fracture of upper end of right ulna, initial encounter for closed fracture
CPT/HCPCS: 73080; 99213

== ENCOUNTER 2023-01-16 16:06 | Outpatient (RCR) | payer MEDICARE, OTHER, SELFPAY ==
[2022-05-30 13:40] VITALS: BP 136/74; BMI 27.5
== END 2023-01-25 23:59 | disposition home or self-care (01) ==
LOC: WPT 16:06
PROVIDERS: PCP Nurse Practitioner; Visit Provider Nurse Practitioner
DX: R26.9 Unspecified abnormalities of gait and mobility (principal)
CPT/HCPCS: 97110; 97112

== ENCOUNTER 2023-01-26 06:00 | Outpatient (RCR) | payer MEDICARE, OTHER, SELFPAY ==
[2022-05-30 13:40] VITALS: BP 136/74; BMI 27.5
== END 2023-02-25 23:59 | disposition home or self-care (01) ==
LOC: WPT 06:00
PROVIDERS: PCP Nurse Practitioner; Visit Provider Nurse Practitioner
DX: R26.89 Other abnormalities of gait and mobility (principal)
CPT/HCPCS: 97110; 97112

== ENCOUNTER → 2023-03-17 12:52 | Outpatient (BNVA) | payer MEDICARE, OTHER, SELFPAY ==
[2022-05-30 13:40] VITALS: BP 136/74; BMI 27.5
== END ==
PROVIDERS: PCP Nurse Practitioner; Visit Provider Radiology Diagnostic Radiology
DX: S52.001A Unspecified fracture of upper end of right ulna, initial encounter for closed fracture (principal); W19.XXXA Unspecified fall, initial encounter
CPT/HCPCS: 73080; 99213; 99214

== ENCOUNTER → 2023-04-14 15:56 | Outpatient (BNVA) | payer MEDICARE, SELFPAY ==
[2022-05-30 13:40] VITALS: BP 136/74; BMI 27.5
== END ==
PROVIDERS: PCP Nurse Practitioner; Visit Provider Nurse Practitioner Psychiatric/Mental Health
DX: Z79.899 Other long term (current) drug therapy (principal)
CPT/HCPCS: 80053; 80061; 80164; 83036

== ENCOUNTER → 2023-05-14 11:14 | Outpatient (BNVA) | payer MEDICARE, OTHER, SELFPAY ==
[2022-05-30 13:40] VITALS: BP 136/74; BMI 27.5
== END ==
PROVIDERS: PCP Nurse Practitioner; Referring Provider Family Medicine; Visit Provider Podiatrist Foot & Ankle Surgery
DX: S92.352D Displaced fracture of fifth metatarsal bone, left foot, subsequent encounter for fracture with routine healing; X58.XXXD Exposure to other specified factors, subsequent encounter
CPT/HCPCS: 73630

== ENCOUNTER 2023-05-14 11:53 | Outpatient (CLI) | payer MEDICARE, OTHER, SELFPAY ==
[2022-05-30 13:40] VITALS: BP 136/74; BMI 27.5
== END 2023-05-14 11:54 | disposition home or self-care (01) ==
LOC: SPT 11:54
PROVIDERS: PCP Nurse Practitioner; Visit Provider Podiatrist Foot & Ankle Surgery
DX: Z46.89 Encounter for fitting and adjustment of other specified devices (principal); S92.901D Unspecified fracture of right foot, subsequent encounter for fracture with routine healing; X58.XXXD Exposure to other specified factors, subsequent encounter
CPT/HCPCS: 97760; 99203; L1902

== ENCOUNTER → 2023-06-11 11:11 | Outpatient (BNVA) | payer MEDICARE, OTHER, SELFPAY ==
[2022-05-30 13:40] VITALS: BP 136/74; BMI 27.5
== END ==
PROVIDERS: PCP Nurse Practitioner; Visit Provider Podiatrist Foot & Ankle Surgery
DX: S92.352A Displaced fracture of fifth metatarsal bone, left foot, initial encounter for closed fracture (principal); W19.XXXA Unspecified fall, initial encounter
CPT/HCPCS: 73630; 99213

== ENCOUNTER → 2023-11-24 12:46 | Outpatient (BNVA) | payer MEDICARE, OTHER, SELFPAY ==
[2023-06-11 14:21] VITALS: BP 126/57; BMI 27.7
== END ==
PROVIDERS: PCP Nurse Practitioner Family; Visit Provider Otolaryngology
DX: Z87.81 Personal history of (healed) traumatic fracture (principal); T14.8XXA Other injury of unspecified body region, initial encounter; R20.0 Anesthesia of skin; R20.2 Paresthesia of skin; W19.XXXA Unspecified fall, initial encounter
CPT/HCPCS: 99204

== ENCOUNTER → 2023-12-22 10:42 | Outpatient (BNVA) | payer MEDICARE, OTHER, SELFPAY ==
[2023-06-11 14:21] VITALS: BP 126/57; BMI 27.7
== END ==
PROVIDERS: PCP Nurse Practitioner Family; Visit Provider Podiatrist Foot & Ankle Surgery
DX: S92.352A Displaced fracture of fifth metatarsal bone, left foot, initial encounter for closed fracture; S92.912A Unspecified fracture of left toe(s), initial encounter for closed fracture; W20.8XXA Other cause of strike by thrown, projected or falling object, initial encounter
CPT/HCPCS: 73630; 99213

== ENCOUNTER 2024-01-26 10:36 | Outpatient (CLI) | payer MEDICARE, OTHER, SELFPAY ==
[2023-06-11 14:21] VITALS: BP 126/57; BMI 27.7
--- NOTE | 2024-01-26 11:00 | CT_ITS ---
WS: [id number] CT PARANASAL SINUSES HISTORY: Facial Numbness TECHNIQUE: Contiguous 2.0 mm axial images obtained through the sinuses. Images are reconstructed in s agittal and coronal planes. All CT scans at [facility] use at least one of these dose optimiz ation techniques: automated exposure control; mA and/or kV adjustment per patient size (includes targ eted exams where dose is matched to clinical indication); or iterative reconstruction. DLP: 383.38 mGy.cm COMPARISON: None available. Frontal sinuses: Normal. Sphenoid sinus: Normal. Ethmoid sinuses: Normal. Maxillary sinus: Normal. No air-fluid levels. Ostiomeatal unit: Widely patent ostiomeatal units. There is a small bony spur of the distal nasal sep nicole extending to the RIGHT approximately 4 mm. Visualized orbits and globes are negative. Moderate bilateral frontal lobe atrophy. CT/CT sinus wo con* [id number] IMPRESSION: 1. No significant sinus disease. 2. Widely patent ostiomeatal units.
== END 2024-01-26 10:37 | disposition home or self-care (01) ==
LOC: RAD 10:37
PROVIDERS: PCP Nurse Practitioner Family; Visit Provider Otolaryngology
DX: Z87.81 Personal history of (healed) traumatic fracture (principal); R20.0 Anesthesia of skin
CPT/HCPCS: 70486

== ENCOUNTER 2024-05-03 11:01 | Outpatient (CLI) | payer MEDICARE, OTHER, SELFPAY ==
[2023-06-11 14:21] VITALS: BP 126/57; BMI 27.7
--- NOTE | 2024-05-03 11:00 | MM_ITS ---
WS: [id number] BILATERAL 3D TOMOSYNTHESIS DIGITAL SCREENING MAMMOGRAM WITH CAD CLINICAL INFORMATION: Z12.39 - Encounter for other screening for malignant neop... HISTORY: Screening mammogram. No current complaints. COMPARISON: 2022 TECHNIQUE: Bilateral CC and MLO. FINDINGS: The breast are composed of extremely dense tissue, which can limit the detection of small underlying mass lesions. No suspicious focal mass, asymmetry, calcifications, or architectural distortion. No ev idence of malignancy. Secretory calcifications. Punctate and lucent centered calcifications. Vascular calcifications. MM/[id number] IMPRESSION: BI-RADS: 2-Benign FOLLOW UP: 1 Year Follow-up Recommend return to annual screening mammography.
== END 2024-05-03 11:02 | disposition home or self-care (01) ==
LOC: MOBLMAM 11:04
PROVIDERS: PCP Nurse Practitioner Family; Visit Provider Nurse Practitioner Family
DX: Z12.31 Encounter for screening mammogram for malignant neoplasm of breast; R92.343 Mammographic extreme density, bilateral breasts
CPT/HCPCS: 77063; 77067